=== PATIENT | female | born 1965 | race Caucasian/White ===

== ENCOUNTER → 2021-09-20 | Day surgery (SDC) | payer OTHER ==
[~2021-09-20] VITALS: Ht 177.8 cm; Wt 73.5 kg
[~2021-09-20] MED LIST: ASHWAGANDHA RO300 MG PO; CANDICIDAL CAP1 EACH PO; MSM500 MG PO
[2021-09-20 09:30] LABS: BUN/CREATININE RATIO 21 (0-10)
== END | disposition home or self-care (01) ==
LOC: OR 07:48
PROVIDERS: Orthopaedic Surgery
DX: S82.852A Displaced trimalleolar fracture of left lower leg, initial encounter for closed fracture (principal); G89.18 Other acute postprocedural pain; Z88.0 Allergy status to penicillin; Z88.5 Allergy status to narcotic agent; Z79.899 Other long term (current) drug therapy; Z20.822 Contact with and (suspected) exposure to COVID-19; W01.0XXA Fall on same level from slipping, tripping and stumbling without subsequent striking against object, initial encounter
CPT/HCPCS: 36415; 73610; 76000; 80048; C1713; J0690; J1100; J2250; J2405; J2704; J2765; J2795; J3010; J7040; J7120